=== PATIENT | male | born 1980 | race Caucasian/White ===

== ENCOUNTER 2021-10-20 06:50 | Emergency (ER) | payer OTHER, SELFPAY ==
[2021-10-20 07:14] VITALS: BP 150/97; PULSE 82; RESP 16; TEMP 36.2; O2SAT 97; BMI 35.6
--- NOTE | 2021-10-20 07:26 | ED.EAR ---
HPI - Ear Problem General Chief complaint: Ear Stated complaint: both ears clogged Time Seen by Provider: 10/20/21 06:57 History of Present Illness HPI Narrative: This 41-year-old man who has no ongoing health problems comes to the ER today in anticipation of leaving on a long see voice edge but he has some ear pain that he is concerned about and does not want to go to see until he makes sure that it is not something serious. He is noted since a flight that he is had some congestion and mild pain in both ears for a couple of days now. He is not had fever or any other symptoms such as sore throat, headache, cough, congestion, shortness of breath, abdominal pain, nausea, vomiting or any other symptoms. Does note that the pain in his ears a little bit worse when he puts pressure on the external ear such as when he was trying to sleep last night. Review of Systems Review of Systems Narrative: Complete review of systems is negative other than as noted above. Exam Narrative Exam Narrative: GENERAL: Alert, cooperative and in no distress. HEAD: Atraumatic. Normocephalic. EYES: Sclera are clear without icterus. Extraocular movements are full. ENT: No rhinorrhea. Oropharynx is moist. Mouth exam is benign. Ear canals bilaterally are slightly reddened. The tympanic membranes are inflamed and mildly red but not fused. There is blotchy inflammation across the tympanic membranes bilaterally. There is mild pain with manipulation of the pinna and the tragus. NECK: Supple. Full range of motion. CARDIOVASCULAR: Normal rate and rhythm without murmur gallop or rub. RESPIRATORY: Clear to auscultation. Breath sounds equal bilaterally. No wheezes, rales, or rhonchi. GASTROINTESTINAL: Abdomen soft, non-tender, nondistended. EXTREMITIES: No edema, full range of motion. No obvious trauma. BACK: Normal inspection, no CVA tenderness. NEURO: Nonfocal examination, normal speech, normal gait. SKIN: No rash or erythema of visible areas PSYCH: Normally oriented. Normal range of affect. Appropriate behavior Initial Vital Signs Initial Vital Signs: Vital Signs Temperature 97.2 F L 10/20/21 07:14 Pulse Rate 82 10/20/21 07:14 Respiratory Rate 16 10/20/21 07:14 Blood Pressure 150/97 H 10/20/21 07:14 Pulse Oximetry 97 10/20/21 07:14 Oxygen Delivery Method 10/20/21 07:14 Course Vital Signs Vital signs: Vital Signs - 8 hr 10/20/21 07:14 Temperature 97.2 F L Pulse Rate 82 Respiratory Rate 16 Blood Pressure 150/97 H Pulse Oximetry 97 Oxygen Delivery Method Room Air Medical Decision Making MDM Narrative Medical decision making narrative: Looks more like otitis externa than anything else but because of his long trip will also recommend Bactrim if not improving in the next couple of days or if he develops fever. Otherwise, decongestants and treatment for otitis externa. Has these medications available on the ship and he was able to provide a list. The antibiotic I recommended orally is Bactrim because of his penicillin allergy. The medicine I recommended for otitis externa is the Cortisporin otic. Discharge Plan Departure Patient Disposition: Home Clinical Impression: Otitis externa, Otitis media Activity Restrictions/Additional Instructions: I am pretty sure this is just pressure and pain from congestion. There is also some evidence of an external ear canal infection. I would recommend you use the eardrops 3 times a day until you feel better and back to normal and then use it for 2 days beyond that. Tylenol and ibuprofen are completely safe to use for pain in addition to that. I would also recommend a decongestant such as pseudoephedrine or guaifenesin. Make sure you are drinking lots and lots of water like about 3 L a day. If you develop fever or if the pain your ear is worse or not improving after a couple of days I would take a 7 day course of the sulfamethoxazole/trimethoprim.
== END 2021-10-20 07:28 | disposition home or self-care (01) ==
PROVIDERS: Emergency Provider Family Medicine Addiction Medicine
DX: H60.93 Unspecified otitis externa, bilateral (principal); H66.93 Otitis media, unspecified, bilateral
CPT/HCPCS: 99281